=== PATIENT | female | born 1990 | race Caucasian/White ===

== ENCOUNTER 2016-07-08 02:49 | Emergency (ER) | payer BC ==
[~2016-07-08] VITALS: Ht 157.5 cm; Wt 66.6 kg
[2016-07-08 02:49] VITALS: Ht 157.5 cm; Wt 66.6 kg
[~2016-07-08 02:49] MED LIST: AMIT10TA92 PO; FLUOXETINE; SULF1TAB38 PO
--- OUTSIDE RECORDS SUMMARY | 2016-07-08 02:54 | XMS REPORT ---
Author Author Javad Jimenez [facility] Address [address] [place] [address] Care Team Providers Care Inspector Aluminum Boat Name Role Phone Javad Jimenez Unavailable [phone] PROBLEMS Type Condition ICD9-CM Code IAD12-HB Code Onset Dates Condition Status SNOMED Code Assessment Elevated TSH R94.6 May, Active 501563711 Problem Major depressive disorder, single episode, unspecified F32.9 Active 79221012 Problem Opioid dependence on maintenance agonist therapy, no symptoms F11.20 Active 67111092 Problem Acquired hypothyroidism E03.9 Active 383802486 Problem CARE LEVEL 3 CARE3 Active Problem Mild episode of recurrent major depressive disorder F33.0 Active 452487336 Problem Anxiety F41.9 Active [id number] ALLERGIES Unknown Allergies SOCIAL HISTORY No smoking Hx information available PLAN OF CARE VITAL SIGNS MEDICATIONS Unknown Medications RESULTS No Results PROCEDURES No Known procedures IMMUNIZATIONS No Known Immunizations
--- OUTSIDE RECORDS SUMMARY | 2016-07-08 02:54 | XMS REPORT ---
Author Author Jose Sharpe Organization [employer] Address Unknown Phone Unavailable Care Team Providers Care Verification Manager Name Role Phone Jose Sharpe CP Unavailable Allergies No Known Allergies Problems No Known Problems Medications No Known Medications Results No Known Results Summary Purpose [employer] Submission
--- OUTSIDE RECORDS SUMMARY | 2016-07-08 02:54 | XMS REPORT ---
Author Author Jose Sharpe [facility] Address [address] [place] [address] Care Team Providers Care Ophthalmic Technician Apprentice Name Role Phone Jose Sharpe Unavailable [phone] PROBLEMS No Known Problems ALLERGIES Unknown Allergies SOCIAL HISTORY No smoking Hx information available PLAN OF CARE VITAL SIGNS MEDICATIONS Unknown Medications RESULTS No Results PROCEDURES No Known procedures IMMUNIZATIONS No Known Immunizations
--- OUTSIDE RECORDS SUMMARY | 2016-07-08 02:54 | XMS REPORT ---
Author Raphael Espinoza Organization [employer] Address Unknown Phone Unavailable Care Team Providers Care Hose Coupling Joiner Name Role Phone Raphael Hammond CP Unavailable Allergies, Adverse Reactions, Alerts Substance Reaction Event Type N.K.D.A. Info Not Available Non Drug Allergy Problems Problem Type Condition Code Onset Dates Condition Status Assessment Removal of staple Z48.02 Active Medications Medication Code System Code Instructions Start Date End Date Status Dosage Dilaudid [facility] [id number] 4 MG Orally every 6 hrs 1 tablet as needed Procedures Procedure Coding System Code Date OFFICE VISITEST PT CPT-4 08575 Dec 12, 2014 Vital Signs Date/Time: Dec 12, 2014 Blood Pressure Systolic 115 mm Hg Height 62.75 in Weight 140 lbs BMI 25.00 Index Cardiac Monitoring Heart Rate 70 /min Blood Pressure Diastolic 75 mm Hg Results No Known Results Summary Purpose [employer] Submission
--- OUTSIDE RECORDS SUMMARY | 2016-07-08 02:55 | XMS REPORT | Continuity of Care Document ---
Author Author Renae [facility] Address [address] [place] [id number] Phone Unavailable Care Team Providers Care Agricultural Chemist Name Role Phone Raul Evangelista PP Unavailable Payers Payer name Insurance type Covered republican ID Authorization(s) Unknown Problems Condition Effective Dates (start - stop) Clinical Status Lumbago - *Chronic Chronic interstitial cystitis - *Chronic Lumbago - Chronic Chronic interstitial cystitis - Chronic Lumbago - *Chronic Medullary sponge kidney - *Chronic Lumbago - Chronic Medullary sponge kidney - Chronic Urinary Tract Infection - *Acute Lumbago - *Acute Lumbago - *Chronic Medullary sponge kidney - *Chronic Chronic interstitial cystitis - *Chronic Calculus of kidney - *Chronic Lumbago - Chronic Medullary sponge kidney - Chronic Chronic interstitial cystitis - Chronic Calculus of kidney - Chronic Lumbago - *Chronic Medullary sponge kidney - *Chronic Lumbago - Chronic Medullary sponge kidney - Chronic Chronic interstitial cystitis - *Chronic Calculus of kidney - *Stable Urinary Tract Infection - *Acute Contact with or exposure to communicable diseases, other communicable diseases - Asymptomatic Ingrowing nail - *Chronic Calculus of kidney - *Chronic Chronic interstitial cystitis - *Poor control Dysuria - Intermittent Tobacco Abuse - *Chronic Other disorders of calcium metabolism - *Chronic Nephritis and nephropathy, not specified as acute or chronic, with unspecified pathological lesion in kidney - *Uncontrolled Lumbago - *Chronic Chronic interstitial cystitis - *Chronic Medullary sponge kidney - *Chronic Acute pharyngitis - *Acute Attention deficit disorder of childhood without mention of hyperactivity - *Chronic Nausea/vomiting in - *Acute Nausea & vomiting - *Acute Absence of menstruation - *Acute Hordeolum externum of right lower eyelid - *Acute Abdominal pain, unspecified site - *Chronic Absence of menstruation - *Chronic Urinary tract infection, site not specified - *Chronic Abdominal pain, right lower quadrant - *Chronic Other specified diseases of nail - *Acute Urinary Tract Infection - Recurrent Lumbago - *Chronic Medullary sponge kidney - *Chronic Melena - *Acute Thinning hair - *Acute Acute bronchitis - *Acute Constipation, unspecified - *Acute Abdominal pain, unspecified site - *Chronic Other nephritis and nephropathy, not specified as acute or chronic, with specified pathological lesion in kidney - *Chronic Unspecified cellulitis and abscess of toe - Mild Dysmenorrhea - *Chronic Urinary tract infection, site not specified - *Acute Other nephritis and nephropathy, not specified as acute or chronic, with specified pathological lesion in kidney - *Chronic Lumbago - *Chronic Medullary sponge kidney - *Chronic Calculus of kidney - *Chronic Chronic interstitial cystitis - *Chronic Lumbago - Chronic Medullary sponge kidney - Chronic Calculus of kidney - Chronic Chronic interstitial cystitis - Chronic OTH SYMPTM URINARY SYSTM - *Acute Chronic interstitial cystitis - *Chronic Medullary sponge kidney - *Chronic Calculus of kidney - Recurrent Lumbago - *Chronic Medullary sponge kidney - *Chronic Calculus of kidney - *Chronic Chronic interstitial cystitis - *Chronic Lumbago - Chronic Medullary sponge kidney - Chronic Calculus of kidney - Chronic Chronic interstitial cystitis - Chronic Dyspareunia - *Acute Insomnia, unspecified - *Acute Lumbago - *Chronic Chronic interstitial cystitis - *Chronic Medullary sponge kidney - *Chronic Unprotected sex - Asymptomatic Calculus of kidney - *Chronic Lumbago - Chronic Chronic interstitial cystitis - Chronic Medullary sponge kidney - Chronic Calculus of kidney - Chronic CHRONIC PAIN SYNDROME - *Symptomatic Lumbago - *Chronic Chronic interstitial cystitis - *Chronic Medullary sponge kidney - *Chronic Calculus of kidney - *Chronic Lumbago - Chronic Chronic interstitial cystitis - Chronic Medullary sponge kidney - Chronic Calculus of kidney - Chronic Chronic interstitial cystitis - *Chronic Other disorders of calcium metabolism - *Chronic Routine gynecological examination - *Routine 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 - *Chronic Amenorrhea - *Acute Keloid scar - *Chronic Cervical strain, acute - Mild Lumbago - *Chronic Chronic interstitial cystitis - *Chronic Medullary sponge kidney - *Chronic Calculus of kidney - *Chronic Constipation due to pain medication - Moderate Proteinuria - Asymptomatic Absence of menstruation - *Chronic Lumbago - *Chronic Absence of menstruation - *Acute Chronic interstitial cystitis - *Routine Back pain - *Chronic Myalgia and myositis, unspecified - *Chronic Medullary sponge kidney - *Chronic Chronic interstitial cystitis - *Chronic Medullary sponge kidney - Chronic Chronic interstitial cystitis - Chronic Calculus of kidney - *Chronic Chronic interstitial cystitis - *Chronic Chronic interstitial cystitis - *Chronic Medullary sponge kidney - *Chronic Chronic pain disorder - Moderate Impetigo - *Acute Cervicalgia - *Acute Lumbago - *Chronic Lumbago - *Chronic Medullary sponge kidney - *Chronic Lumbago - Chronic Medullary sponge kidney - Chronic Lumbago - *Acute Upper Respiratory Infection, Acute - *Acute Medullary sponge kidney - *Chronic Chronic interstitial cystitis - *Chronic Calculus of kidney - *Chronic Lumbago - *Chronic Medullary sponge kidney - Chronic Chronic interstitial cystitis - Chronic Calculus of kidney - Chronic Lumbago - Chronic Calculus of kidney - *Chronic Chronic interstitial cystitis - *Chronic Somatic Dysfunction: Thoracic Region - Moderate Nonallopathic lesions of lumbar region, not elsewhere classified - Moderate CHRONIC PAIN SYNDROME - *Poor control Amenorrhea - *Acute Absence of menstruation - *Acute Absence of menstruation - *Chronic Hemorrhoid - *Chronic Unspecified viral infection - *Acute Acute bronchitis - *Acute Second hand tobacco smoke - *Uncontrolled Acute sinusitis, unspecified - Mild Cystitis - *Chronic Incontinence of urine - *Chronic Lumbago - *Chronic Calculus of kidney - *Chronic Chronic interstitial cystitis - *Chronic Medullary sponge kidney - *Chronic Lumbago - Chronic Calculus of kidney - Chronic Chronic interstitial cystitis - Chronic Medullary sponge kidney - Chronic Dysuria - *Acute Vaginitis and vulvovaginitis, unspecified - *Acute Absence of menstruation - *Acute Ingrowing nail - *Chronic Ingrowing nail - Chronic interstitial cystitis - *Chronic Chronic interstitial cystitis - Chronic Lumbago - *Chronic Kidney pain - *Chronic Vaginitis - *Acute Family History Family Member Diagnosis Age At Onset Status Father (Unknown) Depression Yes Family h/o (Unknown) Diabetes Yes Father (Unknown) Alcoholism Yes Social History Social History Element Description Quantity Unknown Allergies, Adverse Reactions, Alerts Substance Reaction Severity Status Unknown Medications Medication Instructions Dosage Effective Dates (start - stop) Status Zoloft 50 mg tablet take 1 tablet (50MG) by oral route every day 50 MG Jan - Active PERCOCET (unknown strength) take 1 tablet by oral route every 6 hours as needed for chronic pain. - Active [place] 10 mg-325 mg tablet take 1 tablet by oral route every 6 hours pain rescue 0 - Active Bactrim DS 800 mg-160 mg tablet take 1 po bid for 5 days - Active Immunizations Vaccine Date Status Comments Hib (HbOC) completed - Completed reason: Previously Given Hib (HbOC) completed - Completed reason: Previously Given Hib (HbOC) completed - Completed reason: Previously Given Hib (HbOC) completed - Completed reason: Previously Given HPV completed - Completed reason: previously given HPV completed - Completed reason: previously given OPV completed - Completed reason: Previously Given OPV completed - Completed reason: Previously Given OPV completed - Completed reason: Previously Given OPV completed - Completed reason: Previously Given DTaP completed - Completed reason: Previously given DTaP completed - Completed reason: Previously given DTaP completed - Completed reason: Previously given DTaP completed - Completed reason: Previously given DTaP completed - Completed reason: Previously given OPV completed - Completed reason: Previously Given MMR completed - Completed reason: Previously Given MMR completed - Completed reason: Previously Given Tdap completed - Completed reason: Previously Given meningococcal completed - Completed reason: Previously Given Results Test Name Date and Time Measure Units Reference Range Abnormal Flag Comments Unknown Vital Signs Date / Time: Height Weight Pulse Rate Blood Pressure Temperature /11:00:00 62.00 in 133.20 lbs 88 /min 120/68 mm[Hg] 98.2 F Procedures Procedure Date Unknown Encounters Encounter Location Date Patient Visit [facility] Patient [facility] Patient [facility] Patient [facility] Patient [facility] Patient Visit [facility] Patient [facility] Patient [facility] Patient [facility] Patient Visit [facility] Patient Visit [facility] Patient Visit [facility] Patient Visit [facility] Advance Directives Directive Effective Date Unknown
--- OUTSIDE RECORDS SUMMARY | 2016-07-08 02:55 | XMS REPORT | Continuity of Care Document ---
Author Author Dave Evangelista [facility] Address [address] [place] [address] [place] [address] Phone Care Team Providers Care Tram Inspector Name Role Phone Raul Evangelista PP Unavailable Payers Payer name Insurance type Covered alliance party ID Authorization(s) Unknown Problems Condition Effective Dates (start - stop) Clinical Status Lumbago - *Chronic Medullary sponge kidney - *Chronic Lumbago - Chronic Medullary sponge kidney - Chronic Lumbago - *Chronic Medullary [...] - *Acute Lumbago - *Chronic Lumbago - *Acute Upper Respiratory Infection, Acute [...] *Acute Vaginitis and vulvovaginitis, unspecified - *Acute Lumbago - *Chronic Chronic interstitial cystitis - *Chronic Lumbago - Chronic Chronic interstitial cystitis - Chronic Absence of menstruation - *Acute Ingrowing nail [...] as needed for chronic pain. - Active Al[place] 10 mg-325 mg tablet take 1 tablet [...] Height Weight Pulse Rate Blood Pressure Temperature /11:01:00 62.00 in 127.00 lbs 118/70 mm[Hg] Procedures Procedure Date Unknown Encounters Encounter Location [...]
--- OUTSIDE RECORDS SUMMARY | 2016-07-08 02:55 | XMS REPORT ---
Author Author Doug Valladares Organization [employer] Address Unknown Phone Unavailable Care Team Providers Care Associate Programmer Analyst Name Role Phone Doug Valladares CP Unavailable Allergies No Known Allergies Problems Problem Type Condition Code Onset Dates Condition Status Assessment Dermatitis 692.9 Active Assessment V22.2 Active Medications Medication Code System Code Instructions Start Date End Date Status Dosage Ariel [facility] [id number] 1 % Externally Twice a day July 09, 2014 1 application to affected area Procedures Procedure Coding System Code Date HIV1 AND HIV2 Single Test CPT-4 27491 July 09, 2014 CBC CPT-4 25449 July 09, 2014 PANEL CPT-4 47719 July 09, 2014 URINALYSIS CPT-4 34019 July 09, 2014 BASIC CHEM 8 CPT-4 36991 July 09, 2014 OFFICE VISITEST PT CPT-4 79701 July 09, 2014 Results No Known Results Summary Purpose eClinicalWorks Submission
--- OUTSIDE RECORDS SUMMARY | 2016-07-08 02:56 | XMS REPORT | Continuity of Care Document ---
Author Author Yanira [facility] Address [address] [place] [address] [place] [address] Phone Care Team Providers Care High School Guidance Counselor Name Role Phone Raul Evangelista PP Unavailable Payers Payer name Insurance type Covered democrat ID Authorization(s) Unknown Problems Condition Effective Dates (start - stop) Clinical Status Lumbago - *Chronic Chronic interstitial cystitis - *Chronic Medullary sponge kidney - *Chronic Calculus of kidney - *Chronic Lumbago - Chronic Chronic interstitial cystitis - Chronic Medullary sponge kidney - Chronic Calculus of kidney - Chronic Urinary Tract Infection - [...] specified pathological lesion in kidney - *Chronic OTH SYMPTM URINARY SYSTM - *Acute Chronic [...] Dyspareunia - *Acute Insomnia, unspecified - *Acute CHRONIC PAIN SYNDROME - *Symptomatic Chronic interstitial cystitis - *Chronic Other disorders [...] - *Acute Chronic interstitial cystitis - *Routine Calculus of kidney - *Chronic Chronic interstitial cystitis - *Chronic Chronic interstitial cystitis - *Chronic Medullary sponge kidney - *Chronic Chronic pain disorder - Moderate Impetigo - *Acute Medullary sponge kidney - *Chronic [...] - *Acute Absence of menstruation - *Chronic Unspecified viral infection - *Acute [...] by oral route every day 50 MG Nov - Active Percocet 7.5 mg-500 mg tablet take 1 - 1.5 Tablet by oral route every 4 - 6 hours as needed 0 - No Longer Active Percocet 7.5 mg-500 mg tablet take 1 - 1.5 Tablet by oral route every 4 - 6 hours as needed 0 - Active Immunizations Vaccine Date Status Comments OPV completed - Completed reason: Previously Given [...] MMR completed - Completed reason: Previously Given Hib (HbOC) completed - Completed reason: Previously Given HPV completed - Completed reason: previously given MMR completed - Completed reason: Previously Given Hib (HbOC) completed - Completed reason: Previously Given HPV completed - Completed reason: previously given Tdap completed - Completed reason: Previously Given Hib (HbOC) completed - Completed reason: Previously Given Hib (HbOC) completed - Completed reason: Previously Given meningococcal completed - Completed reason: Previously Given Results Test Name Date and Time Measure Units Reference Range Abnormal Flag Comments Panel Description: Urine Culture Urine Culture 14:36:00 Source: Urine Collected: 12/19/12 14:36 Site: Received : 12/19/12 20:14 Order#: [id number] Culture PRELIM 12/20/12 09:55 No growthKEY FOR RESULTS: * - NEW RESULT - RESULT WAS MODIFIED AFTER FINAL STATUS SET Panel Description: Urine Culture Urine Culture 14:36:00 Source: Urine Collected: 12/19/12 14:36 Site: Received : 12/19/12 20:14 Order#: [id number] Culture FINAL 12/21/12 07:16 Normal urogenital/skin selam presentKEY FOR RESULTS: * - NEW RESULT - RESULT WAS MODIFIED AFTER FINAL STATUS SET Vital Signs Date / Time: Height Weight Pulse Rate Blood Pressure Temperature /14:33:00 62.00 in 144.00 lbs 120/66 mm[Hg] 97.7 F Procedures Procedure Date OFFICE/OUTPT VISIT,EST,LEVL IV Encounters Encounter Location Date Patient Visit [facility] [...]
--- OUTSIDE RECORDS SUMMARY | 2016-07-08 02:56 | XMS REPORT | Continuity of Care Document ---
Author Author Kerrie Valdivia MA, [facility] Address [address] [place] [address] Phone Care Team Providers Care Silk Blocker Name Role Phone Raul Evangelista PP Unavailable Payers Payer name Insurance type Covered green party ID Authorization(s) Unknown Problems Condition Effective [...] - Chronic Medullary sponge kidney - Chronic Cervicalgia - *Acute Lumbago - *Chronic Lumbago - *Acute Upper Respiratory Infection, Acute - *Acute Urinary Tract Infection - *Acute Lumbago - *Acute Lumbago - *Chronic Medullary sponge kidney - *Chronic Chronic interstitial cystitis - *Chronic Calculus of kidney - *Chronic Lumbago - Chronic Medullary sponge kidney - Chronic Chronic interstitial cystitis - Chronic Calculus of kidney - Chronic Chronic interstitial cystitis - *Chronic Calculus of kidney - *Stable Urinary Tract Infection - *Acute Ingrowing nail - *Chronic Calculus of kidney [...] - *Chronic Absence of menstruation - *Chronic Other specified diseases of nail - *Acute Acute bronchitis - *Acute Constipation, unspecified - *Acute Abdominal pain, unspecified site - *Chronic Other nephritis and nephropathy, not specified as acute or chronic, with specified pathological lesion in kidney - *Chronic Unspecified cellulitis and abscess of toe - Mild Dysmenorrhea - *Chronic OTH SYMPTM URINARY SYSTM - *Acute Chronic interstitial cystitis - *Chronic Medullary sponge kidney - *Chronic Calculus of kidney - Recurrent Abdominal pain, right lower quadrant - *Chronic Urinary tract infection, site not specified - *Chronic Lumbago - *Chronic Medullary sponge [...] - Chronic Calculus of kidney - Chronic Other nephritis and nephropathy, not specified as acute or chronic, with specified pathological lesion in kidney - *Chronic Urinary tract infection, site not specified - *Acute Contact with or exposure to communicable diseases, other communicable diseases - Asymptomatic Thinning hair - *Acute Melena - *Acute Medullary sponge kidney - *Chronic Lumbago - *Chronic Urinary Tract Infection - Recurrent Chronic interstitial cystitis - *Chronic Other disorders [...] - *Uncontrolled Acute sinusitis, unspecified - Mild Lumbago - *Chronic Calculus of kidney - [...] interstitial cystitis - Chronic Lumbago - *Chronic Vaginitis - *Acute Kidney pain - *Chronic Incontinence of urine - *Chronic Cystitis - *Chronic Family History Family Member Diagnosis Age At Onset Status Father (Unknown) Depression Yes Family h/o (Unknown) Diabetes Yes Father (Unknown) Alcoholism Yes Social History Social History Element Description Quantity Unknown Allergies, Adverse Reactions, Alerts Substance Reaction Severity Status Unknown Medications Medication Instructions Dosage Effective Dates (start - stop) Status Percocet 7.5 mg-500 mg tablet take 1 - 1.5 Tablet by oral route every 4 - 6 hours as needed 0 - No Longer Active Zoloft 50 mg tablet take 1 tablet (50MG) by oral route every day 50 MG Jan - Active take 1 tablet by ORAL route every 6 hours as needed for anxiety spells 0 - Active Robaxin 500 mg tablet take 2 tablet (1000MG) by oral route 3 times every day 1000 MG - Active [place] 10 mg-325 mg tablet take 1 tablet by oral route every 6 hours pain rescue 0 - Active cefdinir 300 mg capsule take 1 capsule (300MG) by ORAL route every 12 hours 300 MG - Active Immunizations Vaccine Date Status Comments [...] MMR completed - Completed reason: Previously Given HPV completed - Completed reason: previously given Hib (HbOC) completed - Completed reason: Previously Given MMR completed - Completed reason: Previously Given Hib (HbOC) completed - Completed reason: Previously Given Hib (HbOC) completed - Completed reason: Previously Given Hib (HbOC) completed - Completed reason: Previously Given Tdap completed - Completed reason: Previously Given HPV completed - Completed reason: previously given meningococcal completed - Completed reason: Previously Given Results Test Name Date and Time Measure Units Reference Range Abnormal Flag Comments Unknown Vital Signs Date / Time: Height Weight Pulse Rate Blood Pressure Temperature /14:44:00 62.00 in 141.60 lbs 110/72 mm[Hg] 98.2 F Procedures Procedure Date OFFICE/OUTPT VISIT,EST,LEVL IV [...] Patient Visit [facility] Patient Visit [facility] Patient Visit [facility] Patient [...]
--- OUTSIDE RECORDS SUMMARY | 2016-07-08 02:56 | XMS REPORT | Continuity of Care Document ---
Author Author Renae Aguirre [facility] Address [address] [place] [address] Phone Unavailable Care Team Providers Care Insulation Batting Machine Operator Name Role Phone Raul Evangelista PP Unavailable Payers Payer name Insurance type Covered constitution party ID Authorization(s) Unknown Problems Condition Effective Dates (start - stop) Clinical Status Lumbago - *Acute Upper Respiratory Infection, Acute - *Acute Lumbago - *Chronic Medullary sponge [...] - Chronic Chronic interstitial cystitis - Chronic OT SYMPTM URINARY SYSTM - *Acute Chronic interstitial [...] *Acute Cervicalgia - *Acute Lumbago - *Chronic Medullary sponge [...] Dosage Effective Dates (start - stop) Status cefdinir 300 mg capsule take 1 capsule (300MG) by ORAL route every 12 hours 300 MG - No Longer Active [place] 10 mg-325 mg tablet take 1 tablet by oral route every 6 hours pain rescue 0 - No Longer Active Zoloft 50 mg tablet take 1 tablet (50MG) by oral route every day 50 MG Jan - Active [place] 10 mg-325 mg tablet take 1 tablet by oral route every 6 hours pain rescue 0 - Active Immunizations Vaccine Date Status [...] Height Weight Pulse Rate Blood Pressure Temperature /14:55:00 62.00 in 135.00 lbs 90 /min 112/76 mm[Hg] 98.2 F Procedures Procedure Date Unknown [...] Patient Visit [facility] Patient Visit [facility] New Urology Patient Visit [facility] [...]
--- OUTSIDE RECORDS SUMMARY | 2016-07-08 02:56 | XMS REPORT ---
Author Author Jose Sharpe Organization [employer] Address Unknown Phone Unavailable Care Team Providers Care Sales Training Manager Name Role Phone Jose Sharpe CP Unavailable Allergies No Known Allergies Problems No Known Problems Medications No Known Medications Results No Known Results Summary Purpose eClinicalWorks Submission
--- OUTSIDE RECORDS SUMMARY | 2016-07-08 02:56 | XMS REPORT ---
Author Author Marian Escalera [facility] Address [address] [place] [address] Care Team Providers Care Fiber Optic Assembler Name Role Phone Marian Escalera Unavailable [phone] PROBLEMS Type Condition ICD9-CM Code JDS10-GI Code Onset Dates Condition Status SNOMED Code Problem Opioid dependence on maintenance agonist therapy, no symptoms F11.20 Active 58769174 Problem Mild episode of recurrent major depressive disorder F33.0 Active 440573010 Problem CARE LEVEL 3 CARE3 Active Problem Anxiety F41.9 Active 38593966 Problem Acquired hypothyroidism E03.9 Active 181686362 ALLERGIES Unknown Allergies SOCIAL HISTORY No smoking Hx information available PLAN OF CARE VITAL SIGNS MEDICATIONS Unknown Medications RESULTS No Results PROCEDURES No Known procedures IMMUNIZATIONS No Known Immunizations
--- OUTSIDE RECORDS SUMMARY | 2016-07-08 02:56 | XMS REPORT | Continuity of Care Document ---
Author Author Debra Henley DO, [facility] Address [address] [place] [address] Phone Care Team Providers Care Floor Framer Name Role Phone DanilochRaul PP Unavailable Payers Payer name Insurance type [...] Dosage Effective Dates (start - stop) Status [place] 10 mg-325 mg tablet take 1 tablet by oral route every 6 hours pain rescue 0 - No Longer Active Zoloft 50 mg tablet take 1 tablet (50MG) by oral route every day 50 MG Jan - Active PERCOCET (unknown strength) take 1 tablet by oral route every 6 hours as needed for chronic pain. - Active [place] 10 mg-325 mg tablet take 1 tablet [...] Height Weight Pulse Rate Blood Pressure Temperature /15:50:00 62.00 in 132.80 lbs 96 /min 124/76 mm[Hg] 98.8 F Procedures Procedure Date OFFICE/OUTPATIENT VISIT, EST Encounters Encounter Location Date Patient Visit [facility] [...] [facility] Patient Visit [facility] Advance Directives Directive Effective Date Unknown
--- OUTSIDE RECORDS SUMMARY | 2016-07-08 02:57 | XMS REPORT ---
Author Author Jose Sharpe Organization [employer] Address Unknown Phone Unavailable Care Team Providers Care Alteration Workroom Supervisor Name Role Phone Jose Sharpe CP Unavailable Allergies No Known Allergies Problems No Known Problems Medications No Known Medications Results No Known Results Summary Purpose eClinicalWorks Submission
--- OUTSIDE RECORDS SUMMARY | 2016-07-08 02:57 | XMS REPORT ---
Author Author Jose Sharpe Organization [employer] Address Unknown Phone Unavailable Care Team Providers Care Telecom Sales Consultant Name Role Phone Jose Sharpe CP Unavailable Allergies No Known Allergies Problems No Known Problems Medications No Known Medications Results No Known Results Summary Purpose eClinicalWorks Submission
--- OUTSIDE RECORDS SUMMARY | 2016-07-08 02:57 | XMS REPORT | Continuity of Care Document ---
Author Author Sheila Claire [facility] Amb[facility] Address [address] [place] [address] Phone Unavailable Care Team Providers Care Bundle Packer Name Role Phone Raul Evangelista PP Unavailable Payers Payer name Insurance type Covered libertarian ID Authorization(s) Unknown Problems Condition Effective Dates (start - stop) Clinical Status Hordeolum externum of right lower eyelid - *Acute Lumbago - *Chronic Chronic interstitial cystitis - *Chronic Medullary sponge kidney - *Chronic Calculus of kidney - *Chronic Lumbago - Chronic Chronic interstitial cystitis - Chronic Medullary sponge kidney - Chronic Calculus of kidney - Chronic Lumbago - *Chronic Absence of menstruation - *Acute Chronic interstitial cystitis - *Routine Urinary Tract Infection - *Acute Lumbago - [...] - *Acute Absence of menstruation - *Acute Abdominal pain, unspecified site - [...] - Asymptomatic Absence of menstruation - *Chronic Calculus of kidney - *Chronic [...] every day 50 MG Nov - Active Bactrim DS 800 mg-160 mg tablet 1po bid - Active Percocet 7.5 mg-500 mg tablet [...] Height Weight Pulse Rate Blood Pressure Temperature /11:04:00 62.00 in 142.00 lbs 92 /min 102/70 mm[Hg] 98.2 F Procedures Procedure Date Unknown [...] Patient Visit [facility] Patient Visit [facility] Patient Visit [facility] [...]
--- OUTSIDE RECORDS SUMMARY | 2016-07-08 02:57 | XMS REPORT ---
Author Author Javad Jimenez [facility] Address [address] [place] [address] Care Team Providers Care Seamless Tube Drawer Name Role Phone Javad Jimenez Unavailable [phone] PROBLEMS Type Condition ICD9-CM Code UPJ32-NP Code Onset Dates Condition Status SNOMED Code Assessment Encounter for supervision of other normal in second trimester Z34.82 Apr, Active 60489443 Assessment Acquired hypothyroidism E03.9 Apr, Active 641100680 Assessment Medullary sponge kidney Q61.5 Apr, Active 868882985 Assessment Other mental disorders complicating , unspecified trimester O99.340 Apr, Active 39884406367252 Assessment Genetic screening Z13.79 Apr, Active 199548881 Assessment 23 weeks gestation of Z3A.23 Apr, Active 08298548 Problem Major depressive disorder, single episode, unspecified F32.9 Active 42862553 Problem Opioid dependence on maintenance agonist therapy, no symptoms F11.20 Active 52292729 Problem Acquired hypothyroidism E03.9 Active 062074883 Problem CARE LEVEL 3 CARE3 Active Problem Mild episode of recurrent major depressive disorder F33.0 Active 763239553 Problem Anxiety F41.9 Active 61226490 ALLERGIES Substance Reaction Event Type Date Status N.K.D.A. Unknown Non Drug Allergy Apr, Unknown SOCIAL HISTORY No smoking Hx information available PLAN OF CARE Activity Details Pending Test * METABOLIC PANEL, COMPREHN (CMP) Pending Test * TSH THYROID STIM HORMONE Pending Test * CREATININE CLEARANCE (24 HR URINE) Pending Test * PROTEIN URINE (24 HR) (RANDOM) Pending Test TRISOMY DETECT, INFORMASEQ/ CELL-FREE DNA/ NIPT- NON- INVASIVE TEST 4 Weeks,Reason: VITAL SIGNS Weight 164.4 lbs 2016-05-18 Blood pressure systolic 138 mm Hg 2016-05-18 Blood pressure diastolic 78 mm Hg 2016-05-18 MEDICATIONS Medication Instructions Dosage Frequency Start Date End Date Duration Status Methadone HCl 40 MG Orally Once a day 2 24h Active Vitamin Active Zoloft 50 MG Orally Once a day 1 tablet 24h Apr, 30 day(s) Active Sertraline HCl 25 MG Orally Once a day 1 tablet 24h Feb, 30 day (s) Active Promethazine HCl 25 MG Orally q 6 hrs prn 1 tablet as needed Feb, June, 30 day(s) Active Zofran ODT 4 MG Orally q 4-6 hrs prn 1 tablet on the tongue and allow to dissolve Feb, 30 day(s) Active RESULTS No Results PROCEDURES Procedure Date Ordered Related Diagnosis Body Site Obstetric Visit May 18, 2016 TSH May 18, 2016 Ultrasound, uterus, after first trimester, transabdominal; single or first gestation (OB sono) (sono) May 18, 2016 Protein total urine May 18, 2016 Comp metabolic panel May 18, 2016 Influenza vaccine, 0.5 mL (3+ years), quadrivalent May 18, 2016 Creatinine clearance May 18, 2016 IMMUNIZATIONS Vaccine Route Administration Date Status Influenza vaccine, 0.5 mL (3+ years), quadrivalent IM Intramuscular April Administered
--- OUTSIDE RECORDS SUMMARY | 2016-07-08 02:57 | XMS REPORT ---
Author Author Susan Kauffman [facility] Address [address] [place] [address] Care Team Providers Care Batter Scaler Name Role Phone Susan Kauffman Unavailable [phone] PROBLEMS Type Condition ICD9-CM Code HXO20-GS Code Onset Dates Condition Status SNOMED Code Problem CARE LEVEL 3 CARE3 Active ALLERGIES Unknown Allergies SOCIAL HISTORY No smoking Hx information available PLAN OF CARE VITAL SIGNS MEDICATIONS Unknown Medications RESULTS No Results PROCEDURES No Known procedures IMMUNIZATIONS No Known Immunizations
--- OUTSIDE RECORDS SUMMARY | 2016-07-08 02:57 | XMS REPORT ---
Author Author Jose Sharpe Organization [employer] Address Unknown Phone Unavailable Care Team Providers Care Gyroscopic Instrument Tester Name Role Phone Jose Sharpe CP Unavailable Allergies No Known Allergies Problems No Known Problems Medications No Known Medications Results No Known Results Summary Purpose eClinicalWorks Submission
--- OUTSIDE RECORDS SUMMARY | 2016-07-08 02:57 | XMS REPORT ---
Author Jose Landa Organization [employer] Address Unknown Phone Unavailable Care Team Providers Care Memory Care Director Name Role Phone Jose Sharpe CP Unavailable Allergies, Adverse Reactions, Alerts Substance Reaction Event Type N.K.D.A. Info Not Available Non Drug Allergy Problems Problem Type Condition Code Onset Dates Condition Status Assessment Chronic pain syndrome G89.4 Active Medications No Known Medications Procedures Procedure Coding System Code Date OFFICE VISITEST PT CPT-4 39424 Jan 25, 2015 Vital Signs Date/Time: Jan 25, 2015 Blood Pressure Systolic 110 mm Hg Height 62.75 in Weight 137.5 lbs BMI 24.55 Index Blood Pressure Diastolic 73 mm Hg Results No Known Results Summary Purpose eClinicalWorks Submission
--- OUTSIDE RECORDS SUMMARY | 2016-07-08 02:58 | XMS REPORT | Continuity of Care Document ---
Author Author Saundra TAYLOR, [facility] Amb[facility] Address [address] [place] [address] Phone Care Team Providers Care Air Export Coordinator Name Role Phone Raul Evangelista PP Unavailable Payers Payer name Insurance type Covered green party ID Authorization(s) Unknown Problems Condition Effective Dates (start - stop) Clinical Status Hemorrhoid - *Chronic Lumbago - *Chronic Medullary sponge [...] Dosage Effective Dates (start - stop) Status ProctoCream-HC 2.5 % rectal apply by topical route 2 times every day to the affected area(s) 0 - No Longer Active Zoloft 50 mg tablet take 1 tablet (50MG) by oral route every day 50 MG Jan - Active PERCOCET (unknown strength) take 1 tablet by oral route every 6 hours as needed for chronic pain. - Active [place] 10 mg-325 mg tablet take 1 tablet [...] Height Weight Pulse Rate Blood Pressure Temperature /13:26:00 62.00 in 134.00 lbs 72 /min 110/58 mm[Hg] 98.4 F Procedures Procedure Date Unknown Encounters Encounter [...]
--- OUTSIDE RECORDS SUMMARY | 2016-07-08 02:58 | XMS REPORT | Referral Summary ---
Author Author [facility] Organization [facility] Address Unknown Phone Unavailable Care Team Providers Care Periodontal Assistant Name Role Phone June, N Primary Care Physician [phone] Encounter [facility] [id number] Date(s): 03/05/15 - 03/05/15 [facility] [address] [place], [place] [address] Discharge Diagnosis: Narcotic addiction Discharge Diagnosis: Chronic narcotic use Discharge Disposition: 01-Home or Self Care Attending Physician: Waylon Bashir DO Admitting Physician: Waylon Bashir DO Referring Physician: Self Referred, X Vital Signs Most recent to 1 oldest [Reference Range]: Temperature Oral 36.5 degC [35.8-37.3 degC] (03/05/15 1:39 PM) Peripheral Pulse 95 bpm Rate [60-100 bpm] (03/05/15 1:39 PM) Respiratory Rate 18 br/min [14-20 br/min] (03/05/15 1:39 PM) Blood Pressure 119/80 mmHg [90-140/60-90 mmHg] (03/05/15 1:39 PM) SpO2 98 % (03/05/15 1:39 PM) Problem List Condition Effective Dates Status Health Status Informant ADHD/Depression(Conf Active irmed)1 Anxiety(Confirmed) Active Calculus of Active kidney(Confirmed) Chronic interstitial Active cystitis (disorder)(Confirmed ) Chronic interstitial Active cystitis(Confirmed) Suicidality(Confirme 2010 Active d)2 Interstitial 2009 Active nephritis(Confirmed) 3 Interstitial Active nephritis(Confirmed) 4 Kidney stone Active (disorder)(Confirmed ) Low back pain Active (finding)(Confirmed) Lumbago(Confirmed) Active Medullary sponge Active kidney (disorder)(Confirmed ) Medullary sponge Active kidney(Confirmed) 1[place] (02/2010) - counseling and meds. See [facility]. 2benadryl OD, hosp. 08/2010. See [facility]. 3s/p cystoscopy w/ uro. See [facility]. 4Cystoscopy. See [facility]. Allergies, Adverse Reactions, Alerts No Known Medication Allergies Medications Anusol-HC 2.5% topical cream 1 bryn, Topical, TID, # 20 g, 0 Refill(s), [id number] Start Date: 12/26/14 Status: Ordered cephalexin 500 mg oral tablet See Instructions, 1 tabs Oral at bedtime, # 30 Each, 3 Refill(s), Pharmacy: [id number], 1 tabs Oral at bedtime Start Date: 03/26/14 Status: Ordered Elmiron 100 mg oral capsule 1 caps, Oral, TIDAC, # 90 caps, 3 Refill(s), Pharmacy: [id number], 1 caps Oral TIDAC Start Date: 03/26/14 Status: Ordered lidocaine 3% topical gel 1 bryn, Topical, BID, as needed for pain, # 9.5 g, 0 Refill(s), [id number] Start Date: 12/26/14 Status: Ordered nitroglycerin 0.4% rectal ointment See Instructions, bryn Rectal q6hrs wash hands immediately after application, # 30 g, 1 Refill(s), Pharmacy: [id number] Start Date: 12/25/14 Status: Ordered Proctofoam HC 1%-1% rectal foam See Instructions, bryn Rectal TID, # 10 g, 0 Refill(s), Pharmacy: [id number] Start Date: 12/25/14 Status: Ordered Results No data available for this section Immunizations Vaccine Date Refusal Reason tetanus/diphth/pertuss (Tdap) adult/adol 09/14/07 diphtheria/pertussis, acel/tetanus ped 09/13/97 diphtheria/pertussis, acel/tetanus ped 01/29/96 diphtheria/pertussis, acel/tetanus ped 07/03/93 diphtheria/pertussis, acel/tetanus ped 02/22/93 diphtheria/pertussis, acel/tetanus ped 92 haemophilus b conjugate (HbOC) vaccine 01/29/96 haemophilus b conjugate (HbOC) vaccine 07/03/93 haemophilus b conjugate (HbOC) vaccine 02/22/93 haemophilus b conjugate (HbOC) vaccine 92 human papillomavirus vaccine 12/22/07 human papillomavirus vaccine 09/14/07 measles/mumps/rubella virus vaccine 09/13/97 measles/mumps/rubella virus vaccine 07/03/93 meningococcal conjugate vaccine 09/14/07 poliovirus vaccine, inactivated 09/13/97 poliovirus vaccine, inactivated 01/29/96 poliovirus vaccine, inactivated 07/03/93 poliovirus vaccine, inactivated 02/22/93 poliovirus vaccine, inactivated 92 Procedures Procedure Date Related Diagnosis Body Site Adenoidectomy Laparoscopy x41 1see [facility]. Social History Social History Type Response Smoking Status Former smoker Assessment and Plan No data available for this section
--- OUTSIDE RECORDS SUMMARY | 2016-07-08 02:59 | XMS REPORT | Referral Summary ---
Author Organization Unknown Address Unknown Phone Unavailable Care Team Providers Care Credit Union Examiner Name Role Phone No PCP, States Primary Care Physician [phone] Encounter [facility] Date(s): 03/26/14 - 03/26/14 [facility] [address] [place] [address] [place], [place] [address] Discharge Diagnosis: Chronic back pain Discharge Diagnosis: Medullary sponge kidney Discharge Diagnosis: Chronic interstitial cystitis Discharge Diagnosis: Chronic urinary tract infection Discharge Disposition: Home or Self Care Attending Physician: Bon Díaz JR, MD Admitting Physician: Bon Díaz JR, MD Vital Signs Most recent to 1 oldest [Reference Range]: Blood Pressure 110/60 mmHg [90-140/60-90 mmHg] (03/26/14 2:46 PM) Problem List Condition Effective Dates Status Health Status Informant ADHD/Depression(Conf Active irmed)1 Anxiety(Confirmed) Active Calculus of Active kidney(Confirmed) Chronic interstitial Active cystitis(Confirmed) Chronic interstitial Active cystitis (disorder)(Confirmed ) Suicidality(Confirme 2010 Active d)2 Interstitial 2009 Active nephritis(Confirmed) 3 Interstitial Active nephritis(Confirmed) 4 Kidney stone Active (disorder)(Confirmed ) Low back pain Active (finding)(Confirmed) Lumbago(Confirmed) Active Medullary sponge Active kidney(Confirmed) Medullary sponge Active kidney (disorder)(Confirmed ) 1[place] (02/2010) - counseling and meds. See [facility]. 2benadryl OD, hosp. 08/2010. See [facility]. 3s/p cystoscopy w/ uro. See [facility]. 4Cystoscopy. See [facility]. Allergies, Adverse Reactions, Alerts No Known Medication Allergies Medications cephalexin 500 mg oral tablet See Instructions, 1 tabs Oral at bedtime, # 30 Each, 3 Refill(s), Pharmacy: [id number], 1 tabs Oral at bedtime Special Instructions: 1 tabs Oral at bedtime Start Date: 2/2/15 Status: Ordered Elmiron 100 mg oral capsule 1 caps, Oral, TIDAC, # 90 caps, 3 Refill(s), Pharmacy: [id number], 1 caps Oral TIDAC Start Date: 03/26/14 Status: Ordered Results No data available for [...] Smoking Status Former smoker Assessment and Plan Extracted from: Title: Ambulatory Patient Education Author: Bon Díaz JR, MD Date : 03/26/14 Follow Up With: Where: When: Pt States No PCP [address] [place] [address] Business (1) Within 3 to 5 days Comments: Follow Up With: Where: When: Bon Díaz [address] [place] [address] Drive; [place] [address] Business (1) In 6 months 09/23/2014 Comments: Extracted from: Title: Office Visit Note Author: Bon Díaz JR, MD Date: 03/26/14 Assessment/Plan Chronic back pain I have referred this young lady to Dr. Pérez for evaluation of her chronic back pain Ordered: Office Visit Level 4 Est 62517 Chronic interstitial cystitis This was a 45 minute visit [id number] in counseling with this patient with greater than 50 percent of the time spent in [id number] counseling .Prescription for [id number] mg 3 times a day was written. Patient was given diet instructions including avoidance of caffeine, highly colored foods and beverages, spicy foods and carbonated beverages. Ordered: Office Visit Level 4 Est 24193 Chronic urinary tract infection 500 prescription for Keflex patient was begun on Keflex 500 mg 1 tablet at bedtime for long-term low-dose chronic suppressive treatment of urinary tract infection. Ordered: Office Visit Level 4 Est 37939 Medullary sponge kidney patient should have a CAT scan once a year to evaluate as well as kidney function tests yearly she was advised of the chronic nature of stone formation with this condition and she verbalize full understanding. Ordered: Office Visit Level 4 Est 46933 Orders: cephalexin, See Instructions, 1 tabs Oral at bedtime, # 30 Each, 3 Refill(s), Pharmacy: [id number], 1 tabs Oral at bedtime pentosan polysulfate sodium, 1 caps, Oral, TIDAC, # 90 caps, 3 Refill(s), Pharmacy: [id number], 1 caps Oral TIDAC
--- OUTSIDE RECORDS SUMMARY | 2016-07-08 02:59 | XMS REPORT ---
Author Author [facility] - Organization Unknown Address Unknown Phone Unavailable Allergies, Adverse Reactions, Alerts * No Latex Allergy. * No IV Contrast Allergy. * No Known Drug Allergies. * No Known Food Allergies. * No Known Allergies. Problems No relevant problems exist. Procedures No relevant procedures performed. Medication Medication reconciliation has not been performed. Results LAB--BEDSIDE TESTING from 09/24/2012 6:07 PMPregnancy Screen, Urine NPT Negative LAB--BEDSIDE TESTING from 09/24/2012 6:59 PMAnion Gap NPT 11 (3-20 ) BUN Venous NPT 13 mg/dl (4-20 mg/dl) Calcium Ionized Venous 1.26 mmol/L (1.19-1.41 mmol/L) Venous CL NPT 107 mEq/L (99-109 mEq/L) Creatinine Venous NPT 0.8 mg/dL (0.4-1.0 mg/dL) Glucose Venous 86 mg/dL (70-100 mg/dL) HCT Venous NPT 37.0 % (37.0-47.0 %) HGB Venous NPT 12.6 g/dL (12.0-16.0 g/dL) Potassium Venous 3.9 mEq/L (3.6-5.1 mEq/L) Sodium Venous 141 mEq/L (136-144 mEq/L) Total CO2 Venous 23 mEq/L L (25-29 mEq/L) LAB--URINE TESTS from 09/24/2012 6:03 PMAppearance Clear Bilirubin Negative (Negative ) Blood Negative (Negative ) Color Yellow Glucose Negative (Negative ) Ketones, Urine Negative (Negative ) Leukocytes Esterase Trace A (Negative ) Nitrites Negative (Negative ) pH, Urine 5.0 (5.0-8.0 ) Protein Negative (Negative ) Specific [place] 1.023 (1.003-1.030 ) Collection Type: Clean Catch Urobilinogen Negative mg/dL (-<1.0 mg/dL) Bacteria Rare Epithelial Cells 0-2 /HPF Mucus Present WBC 0-2 /HPF (0-4 /HPF)
--- OUTSIDE RECORDS SUMMARY | 2016-07-08 02:59 | XMS REPORT ---
Author Author Marian Escalera Organization [employer] Address Unknown Phone Unavailable Care Team Providers Care Devulcanizer Head Name Role Phone Marian Escalera CP Unavailable Allergies, Adverse Reactions, Alerts Substance Reaction Event Type N.K.D.A. Info Not Available Non Drug Allergy Problems Problem Type Condition Code Onset Dates Condition Status Assessment Opioid dependence in remission F11.21 Active Assessment Unspecified mood [affective] disorder F39 Active Problem CARE LEVEL 3 CARE3 Active Assessment Folliculitis L73.9 Active Medications Medication Code System Code Instructions Start Date End Date Status Dosage Methadone HCl [facility]ED [facility] [address]-74 20 mg Orally Once a day 1 tablet Procedures Procedure Coding System Code Date Office visit new level 2 CPT-4 59834 August 30, 2015 Vital Signs Date/Time: August 30, 2015 Height 62.83 in Weight 153.4 lbs Temperature 98.4 F Cardiac Monitoring Heart Rate 129 /min Blood Pressure Diastolic 70 mm Hg Blood Pressure Systolic 110 mm Hg BMI 27.32 Index Results No Known Results Summary Purpose eClinicalWorks Submission
--- OUTSIDE RECORDS SUMMARY | 2016-07-08 02:59 | XMS REPORT ---
Author Author Jose Sharpe Organization [employer] Address Unknown Phone Unavailable Care Team Providers Care Avionics Technician Name Role Phone Jose Sharpe CP Unavailable Allergies No Known Allergies Problems No Known Problems Medications No Known Medications Results No Known Results Summary Purpose eClinicalWorks Submission
--- OUTSIDE RECORDS SUMMARY | 2016-07-08 02:59 | XMS REPORT | Continuity of Care Document ---
Author Author Lane Neville MA, [facility] Ambulatory Address [address] [place] [id number] Phone Unavailable Care Team Providers Care Maintenance Shop Technician Name Role Phone Raul Evangelista PP Unavailable Payers Payer name Insurance type Covered democrat ID Authorization(s) Unknown Problems Condition Effective Dates (start - stop) Clinical Status Back pain - *Chronic Myalgia and myositis, [...] times every day 1000 MG - Active Lane 10 mg-325 mg tablet take 1 tablet [...] Height Weight Pulse Rate Blood Pressure Temperature /14:56:00 62.00 in 135.00 lbs 120/76 mm[Hg] Procedures Procedure Date Unknown Encounters Encounter Location Date Patient Visit [facility] Visit [facility] [...] Patient Visit [facility] Patient Visit [facility] New Urology Patient Visit [facility] [...]
--- OUTSIDE RECORDS SUMMARY | 2016-07-08 02:59 | XMS REPORT | Referral Summary ---
Author Author [facility] Organization [facility] Address Unknown Phone Unavailable Encounter [facility] [id number] Date(s): 12/25/14 - 12/25/14 [facility] [address], [place] [address] [place] Discharge Diagnosis: Medullary sponge kidney Discharge Diagnosis: Chronic low back pain Discharge Diagnosis: Preventative health care Discharge Diagnosis: History of hemorrhoids Discharge Diagnosis: Anal fissure Discharge Diagnosis: Interstitial cystitis Discharge Disposition: -Home or Self Care Attending Physician: Malina Barbosa MD Admitting Physician: Malina Barbosa MD Referring Physician: Malina Barbosa MD Vital Signs No data available for this section Problem List Condition Effective Dates Status Health [...] Alerts No Known Medication Allergies Medications Anusol-HC 25 mg rectal suppository 25 mg 1 supp, Rectal, BID, X 14 days, # 28 supp, 0 Refill(s), Pharmacy: [facility] [id number], 1 supp Rectal BID,x14 days Start Date: 12/25/14 Stop Date: 01/08/15 Status: Ordered cephalexin 500 mg oral tablet See Instructions, 1 tabs Oral at bedtime, # 30 Each, 3 Refill(s), Pharmacy: [facility] [id number], 1 tabs Oral at bedtime Start Date: 03/26/14 Status: Ordered Elmiron 100 mg oral capsule 1 caps, Oral, TIDAC, # 90 caps, 3 Refill(s), Pharmacy: [facility] [id number], 1 caps Oral TIDAC Start Date: 03/26/14 Status: Ordered nitroglycerin 0.4% rectal ointment See Instructions, bryn Rectal q6hrs wash hands immediately after application, # 30 g, 1 Refill(s), Pharmacy: [facility] [id number] Start Date: 12/25/14 Status: Ordered Proctofoam HC 1%-1% rectal foam See Instructions, bryn Rectal TID, # 10 g, 0 Refill(s), Pharmacy: [facility] [id number] Start Date: 12/25/14 Status: Ordered Results No [...] smoker Assessment and Plan Extracted from: Title: Office Visit Note/EST Author: Malina Barbosa MD Date: 12/25/14 Assessment/Plan 1.History of hemorrhoids I set her up with Dr. Rio Verduzco for hemorrhoidectomy. I gave herhydrocortisone suppositories as well as Proctofoam cream. 2.Anal fissure I gave her prescription for nitroglycerincream. 3.Medullary sponge kidney She follows with . 4.Interstitial cystitis She is encouraged to be on Elmiron. She is not breast-feeding. 5.Chronic low back pain She has had chronic back painfor which she has been referred to Dr. Pérez. 6.Preventative health care She is encouraged to get a Pap and pelvic on a yearly basis. She follows with . Follow-up: As needed. No follow-up appointment was made today. Orders: hydrocortisone topical, 25 mg 1 supp, Rectal, BID, X 14 days, # 28 supp, 0 Refill(s), Pharmacy: [facility] [id number], 1 supp Rectal BID,x14 days hydrocortisone-pramoxine topical, See Instructions, bryn Rectal TID, # 10 g, 0 Refill(s), Pharmacy: [facility] [id number] nitroglycerin, See Instructions, bryn Rectal q6hrs wash hands immediately after application, # 30 g, 1 Refill(s), Pharmacy: [facility] [id number]
--- NOTE | 2016-07-08 03:00 | NUR ---
PROVIDER DR KANG IN ROOM TO SEE PT
[2016-07-08] MEDS ORDERED: CLIN300C86 PO (03:13)
--- NOTE | 2016-07-08 03:13 | ERPDOC ---
Departure Disposition Decision Date: July 08, 2016 Disposition Decision Time: 03:12 Disposition: 01 DISCHARGED HOME, SELF-CARE Impression Impression Impression: Primary Impression: Pain, dental Severity: Severe Condition: Improved Seen By: Physician only Referrals: SARAHY DAI DO (Family) Patient Instructions: Toothache (ED) Problems/Meds/Labs Reviewed?: Yes Medications reviewed and manag: Yes Additional Instructions: Use Tylenol 1000 mg up to 4 times daily as needed for pain Clindamycin 300 mg one tablet 3 times daily Follow up with a dentist of your choice as soon as possible Follow up care ordered?: Yes Mental Status: Alert Scripts Clindamycin HCl (Clindamycin HCl) 300 Mg Capsule 300 MG PO TID, #30 CAP 0 Refills Prov: LEROY KANG MD 07/08/16 HPI General Chief Complaint: Toothache Stated Complaint: TOOTH PAIN Time Seen by Provider: 02:58 Source: patient Exam Limitations: no limitations HPI Dental Initial Comments Severe right upper molar dental pain 2 days. Patient has tried Tylenol, Orajel, wax packing at home with no relief. Patient is 31 weeks , has no symptoms related to the , denies abdominal pain, cramps, bleeding or loss of fluid. Occurred At: home Onset: Gradual Severity: moderate, severe Location: R upper 1 - Severe pain with tenderness, lateral dental decay Allergies: Coded Allergies: No Known Allergies (Unverified , 08/21/11) Past History Patient Medical History Problem List Updates: Methadone therapy Past Medical History ENMT: dental problems Psychological: alcohol abuse Vaccines Hx Influenza Vaccination: Yes (2009) Hx Pneumococcal Vaccination: No Review of Systems Constitutional Constitutional: DENIES: appetite decrease, appetite increase, chills, dizziness , fever, weakness ENMT Ears: DENIES: pain Hearing: DENIES: hearing loss, tinnitus Balance: DENIES: vertigo Mouth/Throat: DENIES: change in swallowing, change in voice, hoarsness, painful swallowing, sore throat Cardiovascular Cardiac: DENIES: chest pain, dyspnea on exertion Rhythm/Rate: DENIES: irregular beat, palpitations, tachycardia Vascular: DENIES: pedal edema Pulmonary Respiratory: DENIES: cough, dyspnea, pleuritic chest pain GI Upper Abdomen: DENIES: dysphagia, heartburn/indigestion, nausea, pain, vomiting Lower Abdomen: DENIES: blood in stool, constipation, diarrhea, pain General: DENIES: burning, dysuria, frequency, pain, urgency Exam General General Nourishment: well nourished, well developed, appears stated age General Body Habitus: well groomed Vital Signs: RN Vital Signs have been reviewed: Yes, Temperature: 98.4, Source : Oral, Heart Rate: 104, Respiratory Rate: 18, BP: 138/80, Pulse Oximetry: 94 Height (Feet): 5 Height (Inches): 2.00 [facility] Dental Teeth: caries Comments Significant right upper molar tenderness with lateral dental decay. No significant gingival erythema or swelling, no visible abscess Neurologic RN Documented GCS Eye Opening: Verbal: Motor: Total: Procedures Procedures Performed Procedures Performed: Dental Block Dental Block Procedure Dental Block : Pain Scale Pre: 10 Location: infra-orbital Method: internal approach Anesthetic: 0.5% Bupivicaine Volume of Anesthetic (cc's): 1.8 Pain Scale Post: 0 Progress Results/Orders Orders Procedure Category Date Status Time Bupivacaine/Epi PHA 07/08/16 In Process *Dental* (Marcaine 03:15 Clindamycin (Cleocin) PHA 07/08/16 In Process 03:15 Medications Current ED Medications Bupivacaine HCl/ Epinephrine Bitart (Marcaine *Dental*) 1.8 ml O ONCE INJ ; Start 07/08/16 at 03:15; Stop 07/08/16 at 03:16 Clindamycin HCl (Cleocin) 300 mg O ONCE PO ; Start 07/08/16 at 03:15; Stop at 03:16 Progress Progress Shared decision-making, patient elects dental nerve block, and we'll start on clindamycin tonight and follow-up with her dentist of choice tomorrow LEROY KANG MD July 08, 2016 03:13
[2016-07-08 03:15] VITALS: BP 134/75; PULSE 78; RESP 18; TEMP 98.4; O2SAT 96
[2016-07-08] MEDS ORDERED: CLINDAMYCIN 300 MG CAPSULE PO ONE (03:15)
[2016-07-08] MEDS ORDERED: BUPIVACAINE 0.5%/EPI 1:200K *DENTAL* 1.8ml SYRINGE INJ ONE (03:15)
--- OUTSIDE RECORDS SUMMARY | 2016-07-08 03:28 | XMS REPORT ---
Author Author [place], [facility] - Organization Unknown Address Unknown Phone Unavailable [...] (5.0-8.0 ) Protein Negative (Negative ) Specific [place] 1.023 (1.003-1.030 ) Collection Type: Clean Catch Urobilinogen Negative mg/dL (-<1.0 mg/dL) Bacteria Rare Epithelial Cells 0-2 /HPF Mucus Present WBC 0-2 /HPF (0-4 /HPF)
[2016-07-08] MEDS ORDERED: SERT50TA PO (20:04)
[2016-07-08] MEDS ORDERED: METH10TA2 PO (20:04)
[2016-07-08] MEDS ORDERED: ACET-62 PO (20:04)
[2016-07-08] MEDS ORDERED: AMOX875T2 PO (20:04)
== END 2016-07-08 03:15 | disposition home or self-care (01) ==
LOC: ED 02:49
DX: K08.89 Other specified disorders of teeth and supporting structures (principal)
CPT/HCPCS: 64400; 99283; S0020

== ENCOUNTER 2016-07-08 19:15 | Emergency (ER) | payer BC ==
[~2016-07-08] VITALS: Ht 157.5 cm; Wt 72.9 kg
[~2016-07-08 19:15] MED LIST changes: +CLIN300C86 PO
--- OUTSIDE RECORDS SUMMARY | 2016-07-08 19:23 | XMS REPORT | Continuity of Care Document ---
Author Author [facility] Organization [facility] Address Unknown Phone Unavailable Support Name Relationship Address Phone LEROY KANG MD Caregiver [address] [place] [address] Unavailable FARHAT KERNS Next Of Kin [id number] [address] [place] [address] Insurance Providers Guarantor Andria Crews Address [address] [place] [address] Email DENIED 16 Payer [facility] Policy Number [id number] Subscriber's Name Michael Kerns Relationship 19 Child Group Number [id number] Chief Complaint and Reason for Visit Chief Complaint Toothache Reason for Visit [id number] Problems Past Problems Medical Problem Onset Date Pain, dental Unknown Medications Current Home Medications Medication Dose Units Route Directions Days Qty Instructions Start Date Amitriptyline Hcl 10 Mg Tablet 20 Mg Oral Daily 08/21/11 Clindamycin Hcl 300 Mg Capsule 300 Mg Oral Three Times A Day 30 Capsule 07/08/16 Fluoxetine Daily 08/21/11 Sulfamethoxazole/Trimethoprim (Bactrim Ds) 1 Tab Tablet 1 Tab Oral Twice A Day 08/21/11 Social History Social History Problem Response Recorded Date/Time Onset Date Status Hx Substance Use No 07/08/2016 3:00am Not Applicable Not Applicable Hx Alcohol Use Y RARE 07/08/2016 3:00am Not Applicable Not Applicable Query Response Start Date Stop Date Smoking Status Unknown if ever smoked Hospital Discharge Instructions No hospital discharge instructions. Plan of Care Discharge Date 07/08/16 3:15am Disposition 01 DISCHARGED HOME, SELF-CARE Condition at Discharge Improved Instructions/Education Provided Toothache (ED) Prescriptions See Medication Section Referrals SARAHY DAI DO Address: [address] [address] Additional Instructions/Education Use Tylenol 1000 mg up to 4 times daily as needed for pain Clindamycin 300 mg one tablet 3 times daily Follow up with a dentist of your choice as soon as possible Care Plan and Goals Physician Care Plan Problem: Dental pain Goal: Follow up with primary care provider Instructions: Take medications and follow care plan as discussed/written Use Tylenol 1000 mg up to 4 times daily as needed for pain Clindamycin 300 mg one tablet 3 times daily Follow up with a dentist of your choice as soon as possible Functional Status No functional status results. Allergies, Adverse Reactions, Alerts No known allergies. Immunizations Query Response on File Recorded Date/Time Hx Influenza Vaccination Y 200908/24/11 8:23am Hx Pneumococcal Vaccination No 08/24/11 8:23am Hx Influenza Vaccination Y 200908/24/11 8:23am Vital Signs Acute Vital Signs Vital Response Date/Time Temperature (Fahrenheit) 98.4 deg F (96.8 - 99.1) 07/08/2016 3:15am Temperature (Calculated Celsius) 36.74917 degrees C (36.0 - 37.3) 07/08/2016 3:15am Pulse Rate (adult) 78 bpm (60 - 100) 07/08/2016 3:15am Respiratory Rate 18 breaths/min (10 - 20) 07/08/2016 3:15am O2 Sat by Pulse Oximetry 96 % (90 - 100) 07/08/2016 3:15am Blood Pressure 134/75 mm Hg 07/08/2016 3:15am Height (Feet) 5 feet 07/08/2016 2:49am Height (Inches) 2.00 inches 07/08/2016 2:49am Weight (Kilograms) 66.600 kg 07/08/2016 2:49am Body Mass Index (BMI) 26.0 07/08/2016 2:49am Results No known relevant diagnostic tests, laboratory data and/or discharge summary. Procedures No known history of procedures. Encounters Encounter Location Arrival/Admit Date Discharge/Depart Date Attending Provider Departed Emergency Room [facility] 07/08/16 2:49am 07/08/16 3: 15am LEROY KANG MD Recent Diagnosis
--- OUTSIDE RECORDS SUMMARY | 2016-07-08 19:27 | XMS REPORT ---
Author Author [facility], [facility] - Organization Unknown Address Unknown Phone [...] (5.0-8.0 ) Protein Negative (Negative ) Specific [place] 1.023 (1.003-1.030 ) Collection Type: Clean Catch Urobilinogen Negative mg/dL (-<1.0 mg/dL) Bacteria Rare Epithelial Cells 0-2 /HPF Mucus Present WBC 0-2 /HPF (0-4 /HPF)
[2016-07-08 19:41] VITALS: TEMP 98.4; Ht 157.5 cm; Wt 72.9 kg
--- NOTE | 2016-07-08 19:52 | NUR ---
PROVIDER DR YEN AT BEDSIDE
--- NOTE | 2016-07-08 19:59 | ERPDOC ---
Departure Disposition Decision Date: July 08, 2016 Disposition Decision Time: 19:58 Disposition: 01 DISCHARGED HOME, SELF-CARE Impression Impression Impression: Primary Impression: Dental abscess Additional Impression: Weeks of gestation: 31 weeks Qualified Codes: Z3A.31 - 31 weeks gestation of Severity: Severe Condition: Improved Seen By: Physician only Referrals: YOUR DENTIST 1 Day Patient Instructions: Dental Abscess (ED) Problems/Meds/Labs Reviewed?: Yes Medications reviewed and manag: Yes Additional Instructions: You have an infected tooth. Take the pain meds as needed tonight. Follow up with your dentist as scheduled tomorrow. Follow up care ordered?: Yes Mental Status: Alert, Oriented HPI General Chief Complaint: Toothache Stated Complaint: 31 WEEKS TOOTH PAIN Time Seen by Provider: 19:45 HPI Dental Allergies: Coded Allergies: No Known Allergies (Unverified , 07/08/16) Past History Past Medical History ENMT: dental problems Psychological: alcohol abuse Vaccines Hx Influenza Vaccination: Yes (2009) Hx Pneumococcal Vaccination: No Exam General Height (Feet): 5 Height (Inches): 2.00 Neurologic RN Documented GCS Eye Opening: Verbal: Motor: Total: Progress Progress Progress Discussed pts need for definitive dental care and use of pain meds for short- term control for pain. Pt voiced understanding. Has appt to have tooth pulled tomorrow. Will give pain med now and short course of meds to last through the night. F/u with dentist in the AM. MELE YEN DO July 08, 2016 19:59
[2016-07-08] MEDS ORDERED: HYDROCODONE/APAP 5 mg/325 mg TABLET PO ONE (20:00)
[2016-07-08] MEDS ORDERED: HYDROCODONE/APAP 5/325 (PrePack) SENT HOME ONE (20:00)
[2016-07-08] MEDS ORDERED: ACET-62 PO (20:04)
[2016-07-08] MEDS ORDERED: METH10TA2 PO (20:04)
[2016-07-08] MEDS ORDERED: AMOX875T2 PO (20:04)
[2016-07-08] MEDS ORDERED: SERT50TA PO (20:04)
[2016-07-08 20:13] VITALS: BP 136/70; PULSE 99; RESP 20; O2SAT 98
--- OUTSIDE RECORDS SUMMARY | 2016-07-08 20:41 | XMS REPORT ---
Author Author [place], [facility] - Organization Unknown Address Unknown Phone Unavailable [...] (5.0-8.0 ) Protein Negative (Negative ) Specific [place] 1.023 (1.003-1.030 ) Collection Type: Clean Catch Urobilinogen Negative mg/dL (-<1.0 mg/dL) Bacteria Rare Epithelial Cells 0-2 /HPF Mucus Present WBC 0-2 /HPF (0-4 /HPF)
== END 2016-07-08 20:13 | disposition home or self-care (01) ==
LOC: ED 19:15
DX: O98.813 Other maternal infectious and parasitic diseases complicating pregnancy, third trimester (principal); K04.7 Periapical abscess without sinus; Z3A.31 31 weeks gestation of pregnancy